=== PATIENT | female | born 1945 | race Caucasian/White ===

== ENCOUNTER 2017-06-08 07:25 | Day surgery (SDC) | payer MEDICARE ==
[2017-06-06 16:25] VITALS: BP 170/78
[2017-06-06 16:25] LABS: BASOPHILS % (AUTO) 1.1 % (0.0-5.0); EOSINOPHILS % (AUTO) 4.5 % (0.0-8.0); HEMATOCRIT 37.6 % (36-48); LYMPHOCYTES % (AUTO) 24.8 % (21.0-51.0); MEAN CORPUSCULAR HEMOGLOBIN 30.1 pg (27.0-33.0); MEAN CORPUSCULAR HGB CONC 34.3 g/dL (32.0-36.0); MEAN CORPUSCULAR VOLUME 87.7 fL (79-99); MONOCYTES % (AUTO) 6.4 % (3.0-13.0); NEUTROPHILS % (AUTO) 63.2 % (40.0-77.0); PLATELET COUNT (AUTO) 257 K/uL (130-400); RED BLOOD CELL COUNT(AUTO) 4.29 MIL/uL (4.00-5.50); RED CELL DISTRIBUTION WIDTH 13.5 % (11.0-15.5); WHITE BLOOD COUNT (AUTO) 5.8 K/uL (4.8-10.8)
[2017-06-06 16:32] LABS: CREATININE 0.8 mg/dL (0.5-1.5); POTASSIUM 4.1 mmol/L (3.5-5.1)
[~2017-06-08] VITALS: Ht 165.1 cm; Wt 85.5 kg
[2017-06-08] VITALS (14 sets, daily range): BP systolic 113–179; BP diastolic 61–86
[~2017-06-08 07:25] MED LIST: AMLO5TAB2 PO; CEFTRIAXONE SODIUM 1 GM IVP SCH; HYDR12.530 PO; SIMV40TA5 PO
[2017-06-08] MEDS ORDERED: ISOVUE-370 50ML VIAL IV ONE (07:55)
[2017-06-08] MEDS ORDERED: CEFTRIAXONE SODIUM 1 GM ONE (08:23)
[2017-06-08] MEDS ORDERED: WATER FOR INJECTION,STERILE 20 ML VIAL ONE (08:23)
[2017-06-08] MEDS ORDERED: LACTATED RINGERS 1000ML 1,000 ML IV ONE (08:23)
[2017-06-08] MEDS ORDERED: DEXAMETHASONE SOD PHOSPHATE 10MG/ML 1ML VIAL ONE (10:42)
[2017-06-08] MEDS ORDERED: GLYCOPYRROLATE 0.2 MG/ML 5 ML VIAL ONE (10:42)
[2017-06-08] MEDS ORDERED: LIDOCAINE PF 2% 5ML ABBOJECT ONE (10:42)
[2017-06-08] MEDS ORDERED: ONDANSETRON HCL 4 MG/2 ML VIAL ONE (10:42)
[2017-06-08] MEDS ORDERED: SUCCINYLCHOLINE 200MG/10ML SYR ONE (10:42)
[2017-06-08] MEDS ORDERED: NEOSTIGMINE METHYLSULFATE 1MG/ML IV ONE (10:42)
[2017-06-08] MEDS ORDERED: PROPOFOL 10 MG/ML 20ML VIAL IV ONE (10:43)
[2017-06-08] MEDS ORDERED: FENTANYL CITRATE PF 50 MCG/1 ML 2ML VIAL ONE (10:43)
[2017-06-08] MEDS ORDERED: MIDAZOLAM HCL 1 MG/ML 2ML VIAL ONE (10:43)
[2017-06-08] MEDS ORDERED: PHENAZOPYRIDINE HCL 200 MG TABLET ONE (12:44)
== END 2017-06-08 13:20 | disposition home or self-care (01) ==
LOC: DAH 07:25
PROVIDERS: ATTEND Urology
DX: N13.5 Crossing vessel and stricture of ureter without hydronephrosis (principal); N32.89 Other specified disorders of bladder; K21.9 Gastro-esophageal reflux disease without esophagitis; M19.90 Unspecified osteoarthritis, unspecified site; E66.9 Obesity, unspecified; I10 Essential (primary) hypertension; Z90.49 Acquired absence of other specified parts of digestive tract; Z87.891 Personal history of nicotine dependence; Z68.31 Body mass index [BMI] 31.0-31.9, adult; Z85.51 Personal history of malignant neoplasm of bladder
CPT/HCPCS: 36415; 52310; 74420; 80048; 85025; 88300; 88341; 88342; 93005; A4344; A4358; A4510; A4600; C1758; J0330; J0696; J1100; J2001; J2250; J2405; J2704; J2710; J3010; J3490; J7120; Q9967

== ENCOUNTER → 2017-08-06 | Outpatient (CLI) | payer MEDICARE ==
[~2017-08-06] MED LIST changes: -CEFTRIAXONE SODIUM 1 GM IVP SCH
== END | disposition home or self-care (01) ==
LOC: RAH 10:54
PROVIDERS: ATTEND Urology
DX: N13.30 Unspecified hydronephrosis (principal); N13.5 Crossing vessel and stricture of ureter without hydronephrosis
CPT/HCPCS: 76770

== ENCOUNTER 2019-05-10 19:56 | Emergency (ER) | payer MEDICARE ==
[~2019-05-10 19:56] MED LIST changes: -AMLO5TAB2 PO; +AMLO5TAB9 PO; +SIMV-46 PO; -SIMV40TA5 PO
[2019-05-10] MEDS ORDERED: ACETAMINOPHEN 325 MG TAB ONE (20:30)
[2019-05-10] MEDS ORDERED: TETANUS/DIPHTHERIA TOXOID [ADULT] 0.5 ML VIAL IM ONE (20:30)
[2019-05-10] MEDS ORDERED: OCTYL 2-CYANOACRYLATE 1 EACH TP ONE (20:31)
== END 2019-05-10 21:34 | disposition home or self-care (01) ==
LOC: EDH 19:56
DX: S01.112A Laceration without foreign body of left eyelid and periocular area, initial encounter (principal); I10 Essential (primary) hypertension; Z87.891 Personal history of nicotine dependence; W18.09XA Striking against other object with subsequent fall, initial encounter; Y93.01 Activity, walking, marching and hiking; Y92.89 Other specified places as the place of occurrence of the external cause; Y99.8 Other external cause status
CPT/HCPCS: 12011; 70450; 70486; 72125; 90471; 90714